=== PATIENT | male | born 1950 | race Caucasian/White ===

== ENCOUNTER 2019-05-27 22:00 | Inpatient (IN) | payer MEDICARE ==
[2019-05-28] VITALS (30 sets, daily range): BP systolic 96–136; BP diastolic 54–91; O2SAT 93–96
[2019-05-28] MEDS: NS 1,000 ML IV SCH ×2 (02:38→15:16)
--- NOTE | 2019-05-28 02:48 | HPEPDOC ---
General Date of Admission 05/28/19 Date of Service: May 28, 2019 Chief Complaint The patient is a 68-year-old male admitted with a reason for visit of Hemoptysis. Source: Patient Exam Limitations: No limitations Timing/Duration: 24 hours Associated Symptoms: Cough, Other (hemoptysis) History of Present Illness Patient is 68 years old male with past medical history of squamous cell lung carcinoma stage 1B/3a transferred from [facility] due to massive hemoptysis. Patient was diagnosed with squamous cell carcinoma of left lung 2 years ago and since that time he had multiple cycles of chemotherapy and radiation. Subsequently he developed radiation pneumonitis. Patient didn't want any further therapy due to poor quality of life. PET/CT of January 2019 didn't show significant progression of diseases. Patient has been recently treated for LLL pneumonia with broad-spectrum antibiotics on 05/11/192018, subsequently he developed C. difficile colitis treated with course of vancomycin. After pneumonia was treated patient noticed intermittent mild hemoptysis. Today, patient started coughing more frequently and developed massive hemoptysis with phlegm with visible small tissue particles. In the [facility] CBC showed hemoglobin of 10.3, patient was normotensive, mildly tachycardic. CTA chest was done and showed no pulmonary emboli, previously noted left parahilar diseases is improved, previously noted parenchymal diseases in the left lower lobe has almost completely resolved. Home Medications Scheduled Aspirin (Aspirin EC) 81 Mg Tablet.dr, 81 MG PO DAILY, (Reported) Cholecalciferol (Vitamin D3) (Vitamin D3) 1,000 Unit Tablet, 1,000 UNIT PO DAILY, (Reported) Clopidogrel Bisulfate (Clopidogrel) 75 Mg Tablet, 75 MG PO DAILY, (Reported) Levothyroxine Sodium (Synthroid) 50 Mcg Tablet, 50 MCG PO DAILY, (Reported) Pantoprazole Sodium (Pantoprazole Sodium) 40 Mg Tablet.dr, 40 MG PO DAILY, (Reported) Allergies Coded Allergies: amoxicillin (Verified Allergy, Unknown, UPSET STOMACH, 05/28/19) clavulanic acid (Verified Allergy, Unknown, UPSET STOMACH, 05/28/19) albuterol (Verified Adverse Reaction, Unknown, SHAKY, 05/28/19) Past Medical History Medical History Coronary artery diseases, squamous cell lung carcinoma, status post stent placement in 2018. Family History Father had melanoma and liver cancer Mother from stroke and Alzheimer Social History * Smoker: former Smoker Alcohol: Denies Drugs: denies A-FIB/CHADSVASC A-FIB History Current/History of A-Fib/PAF?: No Current PO Anticoag Therapy: No Review of Systems Constitutional: Reports: Malaise; Denies: Chills, Fever Eyes: Denies: Pain, Vision change ENT: Denies: Head Aches, Ear Pain Skin: Denies: Rash, Lesions Pulmonary: Reports: Dyspnea, Cough, Other Symptoms (hemoptysis) Cardiovascular: Denies: Chest Pain, Palpitations Gastrointestinal: Denies: Nausea, Vomiting Genitourinary: Denies: Dysuria, Frequency Hematologic: Denies: Bruising, Bleeding Excessively Endocrine: Denies: Polydipsia, Polyphagia Musculoskeletal: Denies: Neck Pain, Back Pain Neurological: Denies: Weakness, Numbness Psych: Reports: Mood Normal Physical Examination General Exam: Positive: Alert, Cooperative Eye Exam: Positive: PERRLA ENT Exam: Positive: Atraumatic, Mucous membr. moist/pink Neck Exam: Positive: Supple; Negative: JVD Chest Exam: Positive: Rhonchi (coarse lung sounds bilaterally) Heart Exam: Positive: Tachycardic Telemetry: Positive: Sinus Abdomen Exam: Positive: Normal bowel sounds Extremity Exam: Positive: Clubbing; Negative: Cyanosis Skin Exam: Positive: Nl turgor and temperature Neuro Exam: Positive: Normal Gait, Strength at 5/5 X4 ext, Cranial Nerves 3-12 NL Psych Exam: Positive: Mental status NL Vital Signs HR75 Assessment/Plan Patient is 68 years old male with past medical history of squamous cell lung carcinoma stage 1B/3a transferred from [facility] due to massive hemoptysis. Patient was diagnosed with squamous cell carcinoma of left lung 2 years ago and since that time he had multiple cycles of chemotherapy and radiation. Subsequently he developed radiation pneumonitis. Patient didn't want any further therapy due to poor quality of life. 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 difficile colitis. (2) Primary lung squamous cell carcinoma Status: Chronic Problem Text: Follow-up with oncologist in the outpatient settings (3) Coronary artery disease Status: Chronic Problem Text: Patient has 2 stents placed in June 2018, he has been on the dual antiplatelet therapy I will stop Plavix for now, continue aspirin Continue cardioprotective medications Plan / VTE VTE Prophylaxis Ordered?: No VTE Exclusion Pharmacological: Other (hemoptysis) ASAEL MORALES DO May 28, 2019 02:48
[2019-05-28 02:50] LABS: HEMATOCRIT 33.5 % (42.0-52.0); HEMOGLOBIN 9.9 g/dl (13.5-17.5); MEAN CORPUSCULAR HEMOGLOBIN 26.3 pg (27.0-33.0); MEAN CORPUSCULAR HGB CONC 29.6 g/dl (32.0-36.5); MEAN CORPUSCULAR VOLUME 88.9 fl (80.0-96.0); PLATELET COUNT, AUTOMATED 264 10^3/uL (150-450); RED BLOOD COUNT 3.77 10^6/uL (4.30-6.10); WHITE BLOOD COUNT 7.4 10^3/uL (4.0-10.0)
[2019-05-28 03:16] LABS: BLOOD UREA NITROGEN 19 MG/DL (7-18); CARBON DIOXIDE LEVEL 26 MEQ/L (21-32); CHLORIDE LEVEL 113 MEQ/L (98-107); CREATININE FOR GFR 1.13 MG/DL (0.70-1.30); GLOMERULAR FILTRATION RATE > 60.0 (>49); GLUCOSE, FASTING 154 MG/DL (70-100); POTASSIUM SERUM 4.9 MEQ/L (3.5-5.1); SODIUM LEVEL 144 MEQ/L (136-145)
[2019-05-28] MEDS ORDERED: ASPI-161 PO (03:30)
[2019-05-28] MEDS ORDERED: CLOP75TA2 PO (03:30)
[2019-05-28] MEDS ORDERED: SYNT50TA PO (03:30)
[2019-05-28] MEDS ORDERED: PANT40TA3 PO (03:30)
[2019-05-28] MEDS ORDERED: VITATAB26 PO (03:30)
[2019-05-28] MEDS: TIOTROPIUM INHALER/CAPSULE (SPIRIVA) INH SCH (07:22)
[2019-05-28] MEDS: LEVALBUTEROL 1.25 MG/0.5 ML CONCENTRATE NEB INH SCH ×3 (08:00→19:33)
[2019-05-28] MEDS ORDERED: LEVOTHYROXINE 50MCG TABLET (0.05MG) PO SCH (09:00)
[2019-05-28] MEDS ORDERED: PANTOPRAZOLE 40MG TAB (PROTONIX) PO SCH (09:00)
[2019-05-28] MEDS ORDERED: ASPIRIN 81 MG ENTERIC TAB PO SCH (09:00)
[2019-05-28] MEDS ORDERED: ACETAMINOPH W/CODEINE #3 TAB UD PO PRN (09:15)
[2019-05-28] MEDS: VITAMIN D 1,000 INTERNATIONAL UNITS TABLET PO SCH (09:30)
[2019-05-28 10:02] LABS: HEMATOCRIT 34.5 % (42.0-52.0); HEMOGLOBIN 10.5 g/dl (13.5-17.5)
[2019-05-28] MEDS ORDERED: ONDANSETRON 4MG/2ML VIAL (J2405) IV PRN (10:45)
--- NOTE | 2019-05-28 10:47 | IPNPDOC ---
Subjective Date Seen The patient was seen on 05/28/19. Subjective Chief Complaint/HPI Says last evening about 7:30 pm started coughing up massive jayden of blood. said about 2 gallons, half filled his sink and says it clogged the sink. There was clots and tissues mixed with it. No fever or chills, no diarrhea. says he has been feeling sob for he last 2 days and felt that his pneumonia was either coming back or did not go away completely. No diarrhea. he finished the vancomycin and antibiotics and has marty off the medicines for 1 week. Objective Physical Examination General Exam: Positive: Alert, Cooperative, No Acute Distress Eye Exam: Positive: Conjunctiva & lids normal, EOMI; Negative: Sclera icteric ENT Exam: Positive: Atraumatic, Mucous membr. moist/pink Neck Exam: Positive: Supple; Negative: JVD Chest Exam: Positive: Rhonchi (coarse lung sounds bilaterally), Diminished Heart Exam: Positive: Rate Normal, Regular Rhythm, Normal S1, Normal S2; Negative: Murmurs, Rubs Telemetry: Positive: Sinus Abdomen Exam: Positive: Normal bowel sounds, Soft; Negative: Tenderness, Hepatospenomegaly Extremity Exam: Positive: Clubbing; Negative: Cyanosis, Edema, Tenderness, Swelling Skin Exam: Positive: Nl turgor and temperature Neuro Exam: Positive: Normal Gait, Strength at 5/5 X4 ext, Cranial Nerves 3-12 NL Psych Exam: Positive: Mental status NL, Anxiety Assessment /Plan Assessment Patient is 68 years old male with past medical history of squamous cell lung carcinoma stage 1B/3a with PET in january showing progress, c.diff 2 weeks ago, COPD, hypothyroid, CAD s/p stents transferred from [facility] due to massive hemoptysis. Patient was diagnosed with squamous cell carcinoma of left lung 2 years ago and since that time he had multiple cycles of chemotherapy and radiation. Subsequently he developed radiation pneumonitis. Patient didn't want any further therapy for the cancer due to poor quality of life. Hemoptysis most likely bleeding from the endobronchial cancer and scar tissues int eh left upper lobe. CTA did not reveal hemorrhage from the lung parenchyma Patient is afebrile, no elevated wbc. will not give antibiotics will give cough suppressants , steroids. Of note patient recently had history of C. difficile colitis. COPD with mild exacerbation will give nebs and steroids does not want albuterol Primary lung squamous cell carcinoma Status: Chronic Problem Text: Follow-up with oncologist in the outpatient settings Coronary artery disease Problem Text: Patient has 2 stents placed in June 2018, he has been on the dual antiplatelet therapy will hold also ASA today. plavix stopped yesterday. Plan/VTE VTE Prophylaxis Ordered?: Yes VS, I&O, 24H, Fishbone Vital Signs/I&O Vital Signs Date Time Temp Pulse Resp B/P (MAP) Pulse Ox O2 Delivery O2 Flow Rate FiO2 05/28/19 10:00 94 Room Air 05/28/19 09:00 2.0 05/28/19 08:00 97.6 95 20 136/91 (106) I&O- Last 24 Hours up to 6 AM 05/28/19 06:00 Intake Total 300 ml Output Total 150 ml Balance 150 ml Laboratory Data 24H LABS Laboratory Tests 2 05/28/19 02:43: Nucleated Red Blood Cells % (auto) 0.0, Anion Gap 5L, Glomerular Filtration Rate > 60.0, Calcium Level 8.0L CBC/BMP Laboratory Tests 05/28/19 02:43 05/28/19 09:52 REBEKAH MEIER MD May 28, 2019 10:47
[2019-05-28] MEDS: DEXTROMETHORPHAN 60MG/10ML SUSP 90ML BTL(DELSYM) PO SCH ×2 (11:51→20:55)
[2019-05-28] MEDS: methylPREDNISolone INJ 40 MG/1 ML VIAL (J2920) IV SCH ×3 (11:51→23:19)
[2019-05-28 12:23] LABS: HEMATOCRIT 33.5 % (42.0-52.0); HEMOGLOBIN 9.9 g/dl (13.5-17.5)
--- NOTE | 2019-05-28 12:42 | CR ---
DATE OF CONSULTATION: 05/28/2019 CHIEF COMPLAINT: Hemoptysis. HISTORY OF PRESENT ILLNESS: The patient is a 68-year-old male with a past medical history of chronic obstructive pulmonary disease (COPD) status post stents, squamous cell lung cancer diagnosed in the left lung, who is transferred from [facility] for reportedly massive hemoptysis. The patient was diagnosed with squamous cell carcinoma of the left lung 2 years ago. He was treated with chemotherapy and radiation with subsequent development of radiation pneumonitis. He was then on immunotherapy, which he did not tolerate, and has since been off all treatment since September of this year. The patient was recently admitted 05/11/2019 with increased cough and some episodes of hemoptysis, which he reports as teaspoon size to tablespoon size in his mucus. He was treated with the antibiotics for a left lower lobe pneumonia with MSSA and subsequently developed Clostridium (C) difficile colitis toward the end of his antibiotic course, which was treated with vancomycin. The patient was discharged home to complete the course of oral antibiotics. He finished his antibiotics last week and he felt he was improving in terms of his cough. He did start to notice some episodes of mild intermittent hemoptysis in his sputum in the past two days, but overnight the patient started having a coughing fit and had been coughing up more amounts of blood with some small tissue particles and mucus mixed in. The patient reports he was filling up almost a sink of blood overnight. He presented to [facility] then where he had a CT angiogram performed and was then transferred here for further management. The patient was previously following with a compositor apprentice near his home. However, he has not seen him for some time. He was previously trialed on Anoro, which he did not notice improvement in his breathing and was then change to Stiolto. The patient has not been using the Stiolto as he found that it would make him cough and he did not feel it was improving his breathing. He was also previously prescribed nebulizer treatments with albuterol, which he did not like due to tremors, and so he has not been using any inhaler therapy for some time since the summer he reports. The patient also has home nasal cannula oxygen supplementation, which he only uses with more physical exertion such if he is outdoors mowing or doing other activities. He does not use his oxygen at night. In the past few days, he has felt some subjective chills. No fevers. Has not had any chest pain. He does have some slight increased shortness of breath as well as a cough. The patient denies any abdominal pain. No increased lower extremity edema. He otherwise reports compliance with his home medication of aspirin and Plavix which he has been on since he had two stents placed in June of 2018. Of note as per the oncologist's progress note, which was written when he was initially admitted to the hospital, he had a more recent PET CT done in April of 2019, which did show some minimal increase in size of left hilar soft tissue density. It was noted to be less hypermetabolic however on PET. PAST MEDICAL HISTORY: CAD. Squamous cell lung carcinoma on the left lung. History of stent placement in 2018. COPD. Hypothyroidism. FAMILY HISTORY: Father with history of melanoma and liver cancer. Mother with history of Alzheimer and CVA. SOCIAL HISTORY: The patient is a former smoker. HOME MEDICATIONS: - aspirin - Plavix - vitamin D - Synthroid - pantoprazole ALLERGIES: To AMOXICILLIN/CLAVULANIC ACID, and ALBUTEROL. PHYSICAL EXAMINATION: Temperature 97.6, pulse 95, respirations 20, blood pressure 136/91, oxygen saturation 95% on room air. General: The patient is sitting in bed, in no acute distress, is able to speak in complete sentences and is not using any accessory muscles for respiration. HEENT: Normocephalic, atraumatic. Pupils are equal and reactive to light bilaterally. Mucous membranes are moist. Neck is supple. Trachea is midline. No palpable cervical adenopathy. Cardiovascular: Regular rate and rhythm. Normal S1, S2. Unable to appreciate any murmurs. Pulmonary: Faint wheezing on the right side. On the left there is increased wheezes and rhonchi noted most particularly in the middle section of the chest posteriorly on the left. Abdomen is obese. It is soft, nontender, nondistended. No palpable mass. Extremities: There is very trace lower extremity edema bilaterally. LABORATORY DATA: WBC 7.4, hemoglobin 9.9 repeat 10.5 this morning. Platelets are 264. Chemistry: Sodium is 144, potassium 4.9, chloride is 113, bicarbonate is 26, BUN 19, creatinine is 1.13, glucose is 154. IMAGES: CT chest at outside hospital at [place] 05/27/2019 - emphysematous changes noted mostly in the upper lobes. There is a saber sheath trachea noted. There is some volume loss on the left side with perihilar soft tissue fullness on the left. There appears to be an endobronchial lesion in the left main bronchus. There is some evidence of radiation pneumonitis in the left upper lobe and some fibrosis extending to the left perihilar region. There are some alveolar opacities in the left lower lobe, which as per the CT report compared to the previous CT imaging, which I do not have access to, is improved. There are some very mild faint reticular nodular opacities in the right lower lobe. There is severe coronary artery calcifications noted. IMPRESSION: Mr. Rico is a 68-year-old male with a history of hypothyroidism, CAD, status post stents, chronic obstructive pulmonary disease, squamous cell carcinoma in the left lung who is here for hemoptysis. The patient was recently admitted at an outside hospital with left lower lobe pneumonia secondary to MSSA in his sputum. He did have some intermittent hemoptysis during his admission, which had improved after being treated with broad-spectrum IV antibiotics. The patient's hospital course was also complicated by development of C diff colitis, which he was treated with vancomycin by mouth as well. In the past few days, the patient has noted some recurrent hemoptysis and overnight developed an episode of coughing with more severe hemoptysis. He has not had any chest pain. Has some slight increased shortness of breath. No fevers but did have some subjective chills. The patient had a repeat CT angiogram done, which did not show any evidence of pulmonary embolism (PE). The previously noted left lower lobe opacity on his prior CT was reportedly improved. He does have the left soft tissue perihilar fullness on the left side, which is likely his cancer. He also has some evidence of radiation pneumonitis changes in the left lung and some volume loss. There was noted what appears to be endobronchial lesion on my review in the left main bronchus, which may be potentially a tumor. The patient was also on Plavix and aspirin for anticoagulation. Since his transfer to [facility], he has not had the massive hemoptysis but is still having increased cough with some sputum with teaspoons of blood mixed in. On exam, he does have wheezing diffusely and some increased rhonchi and wheezes more on the left side. The patient does have a history of COPD and has not been on any inhalers. He likely does have a component of acute COPD exacerbation. I suspect his hemoptysis is from his lung cancer on the left side with possible endobronchial disease. Squamous cell in particular can be friable and easy to bleed. He is also on aspirin and Plavix which is also contributing to his hemoptysis. - Would hold the patient's Plavix but can continue with the aspirin given his stents which were placed almost a year ago at this point. - Continue with cough suppressant medication and continue to monitor his amount of hemoptysis. - Will start him on steroids with Solu-Medrol 40 mg every 6 and start him on Xopenex nebulizers. Can also start him on Spiriva for his history of COPD as well. - The patient currently appears to be saturating well on room air and is not in any respiratory distress. He does have a nasal cannula oxygen, which he uses as needed. Can start him on nasal cannula oxygen with exertion if needed to maintain oxygen saturation above 90% - If patient were to have worsening episodes of hemoptysis then he would likely need to be intubated for bronchoscopy to help localize the site of bleeding. Suspect his hemoptysis can be localized to his left lung with the potential of a left mainstem endobronchial lesion. If he were to have continued hemoptysis, he may also benefit from angiography for treatment and embolization as well. At this time however, will continue to monitor him. - The patient is DO NOT RESUSCITATE/DO NOT INTUBATE and he has refused any further chemotherapy or immunotherapy treatment since September of this year as he felt with treatment he was having worsening quality of life. However, if he were to have massive hemoptysis again would need to re-address his GOC. - Will repeat a chest x-ray in the morning. He is at risk for possible recurrent postobstructive pneumonias and if there is any evidence of pneumonia with increasing leukocytosis and fevers and worsening findings on imaging, then would start him on antibiotics at that time. - Would make sure he has an active type and screen. Deep venous thrombosis (DVT) prophylaxis. Sequential compressive device (SCD). CODE STATUS: DO NOT RESUSCITATE/DO NOT INTUBATE. MTDD
[2019-05-28] MEDS ORDERED: SUCCINYLCHOLINE INJ 200 MG/10 ML VIAL (J0330) IV ONE (18:45)
[2019-05-28] MEDS ORDERED: ETOMIDATE INJ 20MG/10ML VIAL IV ONE (18:45)
[2019-05-28] MEDS ORDERED: PROPOFOL 1,000 MG/100 ML VIAL As Ordered ONE (19:00)
[2019-05-28] MEDS ORDERED: THROMBIN SOLN 20,000 UNITS KIT As Ordered ONE (19:16)
[2019-05-28] MEDS ORDERED: THROMBIN SOLN 5,000 UNITS VIAL As Ordered ONE (19:16)
[2019-05-28] MEDS ORDERED: EPINEPHrine 1MG/10ML SYRINGE 1.5IN As Ordered ONE (19:17)
[2019-05-28] MEDS ORDERED: fentaNYL 100 MCG/2 ML INJECTION (J3010) As Ordered ONE (19:19)
[2019-05-28] MEDS ORDERED: MIDAZOLAM INJ 2 MG/2 ML VIAL (J2250) IV STA (19:37)
[2019-05-28] MEDS ORDERED: MIDAZOLAM INJ 2 MG/2 ML VIAL (J2250) As Ordered ONE ×2 (19:38→20:23)
[2019-05-28] MEDS ORDERED: LIDOCAINE 1% MDV 20ML VIAL As Ordered ONE (19:58)
[2019-05-28] MEDS ORDERED: CETACAINE SPRAY 5GM As Ordered ONE (20:00)
[2019-05-28] MEDS ORDERED: PROPOFOL 200 MG/20 ML VIAL As Ordered ONE (20:23)
[2019-05-28] MEDS ORDERED: CALCIUM CHLORIDE 10% 1 GM/10 ML SYR As Ordered ONE (20:23)
[2019-05-28] MEDS ORDERED: PHENYLephrine HCL 500 MCG/5 ML (100MCG/ML) SYRINGE (J2370) As Ordered ONE (20:23)
[2019-05-28] MEDS ORDERED: LIDOCAINE 2% INJ 100 MG/5 ML SDV (FOR ANES.) As Ordered ONE (20:23)
[2019-05-28] MEDS ORDERED: ROCURONIUM BROMIDE 50 MG/5 ML VIAL As Ordered ONE (20:23)
[2019-05-28] MEDS ORDERED: fentaNYL 250 MCG/5 ML INJECTION (J3010) As Ordered ONE (20:23)
--- NOTE | 2019-05-28 20:28 | ROOR ---
Patient Name: Constantino Rico Procedure Date: 05/28/2019 7:48 PM Date of : 1950 Admit Type: Inpatient Age: 68 Room: Main OR Note Status: Finalized Attending MD: Arely Patel MD Procedure: Bronchoscopy Indications: Hemoptysis with abnormal CXR Providers: Arely Patel MD (Doctor) Referring MD: 1. No Referring Physician 1. No Referring Physician, Admin. (Referring MD) Requesting Physician: Medicines: General Anesthesia Complications: No immediate complications. Estimated blood loss: Minimal Procedure: Pre-Anesthesia Assessment: - Prior to the procedure, a History and Physical was performed, and patient medications and allergies were reviewed. The patient's tolerance of previous anesthesia was also reviewed. The risks and benefits of the procedure and the sedation options and risks were discussed with the patient. All questions were answered, and informed consent was obtained. Prior Anticoagulants: The patient has taken aspirin, last dose was 1 day prior to procedure. ASA Grade Assessment: III - A patient with severe systemic disease. After reviewing the risks and benefits, the patient was deemed in satisfactory condition to undergo the procedure. The Bronchoscope was introduced through the mouth, via the endotracheal tube (the patient was intubated for the procedure) and advanced to the tracheobronchial tree of both lungs. The procedure was accomplished without difficulty. The patient tolerated the procedure well. Findings: In the right lung there was bloody mucoid secretions noted. No endobronchial lesions, no active bleeding in right bronchial tree. Left Lung Abnormalities: Nodular mucosa was found in the left mainstem bronchus. An area of polypoid, friable endobronchial lesion was found in the left mainstem bronchus. There was almost near complete obstruction of the left main stem bronchus with visible oozing blood noted. Topical Epinephrine (1:10,000), 1 mg/10 mL and Thrombin 5000 units was administered. The bleeding persisted for awhile, but eventually stopped. Impression: - Hemoptysis with abnormal CXR - Nodular mucosa was visualized in the left mainstem bronchus. - Polypoid, Friable endobronchial lesion was found in the left mainstem bronchus. - Topical Epinephrine (1:10,000), 1 mg/10 mL and Thrombin 5000 units administered. The bleeding persisted for awhile, but eventually stopped. - No specimens collected. Recommendation: - Repeat flexible bronchoscopy 1 day. Attending Participation: I personally performed the entire procedure. Arely Patel MD 05/28/2019 8:27:28 PM Number of Addenda: 0 Note Initiated On: 05/28/2019 7:48 PM
[2019-05-28] MEDS: PROPOFOL 1,000 MG in IV 1 EA IV SCH (20:43)
[2019-05-28] MEDS: CHLORHEXIDINE GLUCONATE 0.12 % 15ML UDC (PERIDEX ORAL RINSE) MT SCH (20:43)
[2019-05-28] MEDS ORDERED: fentaNYL 100 MCG/2 ML INJECTION (J3010) IV PRN (20:45)
[2019-05-28] MEDS: MIDAZOLAM INJ 2 MG/2 ML VIAL (J2250) IV PRN (21:06)
[2019-05-28 21:25] LABS: ABG BASE EXCESS -4.1 (-2.0-2.0); ABG HCO3 20.8 MEQ/L (22.0-26.0); ABG O2 SATURATION 98.9 % (95.0-99.0); ABG PARTIAL PRESSURE CO2 37.2 mmHg (35.0-45.0); ABG STANDARD HCO3 21.1 MEQ/L (22.0-26.0); ABG pH (ARTERIAL) 7.366 UNITS (7.350-7.450)
--- NOTE | 2019-05-28 21:59 | IPN ---
DATE: 05/28/2019 The patient was seen later this afternoon after developing an episode of massive hemoptysis. The patient had an episode of coughing where he coughed up bright red blood, approximately 200 mL of bright red blood with some clots into a bag. He was mildly tachypneic and was on nasal cannula oxygen at that point. He denied any significant chest pains or worsening shortness of breath, but he did feel slightly more discomfort than previous. Patient's vital signs otherwise were relatively stable besides some mild tachycardia. Discussed with the patient and his then with his recurrent massive hemoptysis that he would likely need bronchoscopy to help localize the bleeding source and would have to be intubated for the procedure. The patient previously was do not resuscitate/do not intubate (DNR/DNI); however after some further discussion about his goals of care, he was agreeable to RESCIND his DNR/DNI for his acute active hemoptysis episodes in order to have treatment. The patient was, therefore, consented for bronchoscopy to help localize the bleeding. Patient was transferred to ICU where he was intubated using Glidescope with a size 8 ETT. He was then sent to OR for bronchoscopy with anesthesia. On the bronchoscopy, he was noted to have an endobronchial lesion in the left mainstem bronchus, which was oozing blood. He had epinephrine topically and thrombin applied with hemostasis achieved. He did also have some mucus and blood secretions in the right lung which were cleared out with suctioning. The patient will be placed on left side down and will have a repeat bronchoscopy tomorrow to assess if he has any evidence of rebleeding. He will also be kept sedated overnight to help diminish any coughing on the ventilator. Will also transfuse patient one unit of platelets given his dysfunctional platelets from the aspirin and Plavix to help with his bleeding and hemoptysis. Discussed with the patient's and family at the bedside that given the endobronchial disease, he may benefit from interventional pulmonary procedures such as cryotherapy or laser therapy and possible stent placement. The lesion appears to be almost completely occluding his left main bronchus, and there is some concern that he may develop complete occlusion and collapse on that left lung at some point. The lesion in the left main bronchus was also extremely friable, and although it appears he has stopped actively bleeding at this time, there is concern that he may potentially rebleed again. Therefore, we discussed potential transfer to a facility that has interventional pulmonary. We also discussed that he may need interventional radiology for angiography and embolization potentially for control of bleeding as well. There is no interventional radiology personnel psychologist this weekend and so he may potentially need to be transferred to a facility that has both services available. CODE STATUS: Code status is now FULL CODE. MTDD
[2019-05-28 23:35] LABS: HEMATOCRIT 26.5 % (42.0-52.0)
[2019-05-28 23:44] LABS: HEMOGLOBIN 7.9 g/dl (13.5-17.5)
[2019-05-29] VITALS (19 sets, daily range): BP systolic 93–114; BP diastolic 52–69
[2019-05-29] MEDS: LEVALBUTEROL 1.25 MG/0.5 ML CONCENTRATE NEB INH SCH ×2 (01:34→07:33)
[2019-05-29] MEDS: MIDAZOLAM INJ 2 MG/2 ML VIAL (J2250) IV PRN ×3 (02:36→13:31)
[2019-05-29] MEDS: NS 1,000 ML IV SCH (03:26)
[2019-05-29] MEDS: PROPOFOL 1,000 MG in IV 1 EA IV SCH ×3 (03:27→13:15)
[2019-05-29 04:23] LABS: HEMATOCRIT 25.5 % (42.0-52.0); HEMOGLOBIN 7.7 g/dl (13.5-17.5); MEAN CORPUSCULAR HEMOGLOBIN 26.2 pg (27.0-33.0); MEAN CORPUSCULAR HGB CONC 30.2 g/dl (32.0-36.5); MEAN CORPUSCULAR VOLUME 86.7 fl (80.0-96.0); PLATELET COUNT, AUTOMATED 237 10^3/uL (150-450); RED BLOOD COUNT 2.94 10^6/uL (4.30-6.10); WHITE BLOOD COUNT 6.5 10^3/uL (4.0-10.0)
[2019-05-29 05:03] LABS: BLOOD UREA NITROGEN 24 MG/DL (7-18); CALCIUM LEVEL 8.5 MG/DL (8.8-10.2); CARBON DIOXIDE LEVEL 26 MEQ/L (21-32); CHLORIDE LEVEL 113 MEQ/L (98-107); CREATININE FOR GFR 1.05 MG/DL (0.70-1.30); GLOMERULAR FILTRATION RATE > 60.0 (>49); GLUCOSE, FASTING 155 MG/DL (70-100); MAGNESIUM LEVEL 2.1 MG/DL (1.8-2.4); POTASSIUM SERUM 4.3 MEQ/L (3.5-5.1); SODIUM LEVEL 145 MEQ/L (136-145)
[2019-05-29 05:48] LABS: ABG BASE EXCESS -1.5 (-2.0-2.0); ABG HCO3 22.6 MEQ/L (22.0-26.0); ABG O2 SATURATION 99.2 % (95.0-99.0); ABG PARTIAL PRESSURE O2 159.4 mmHg (75.0-100.0); ABG STANDARD HCO3 23.2 MEQ/L (22.0-26.0); ABG TOTAL CO2 23.6 MEQ/L (23.0-31.0); ABG pH (ARTERIAL) 7.427 UNITS (7.350-7.450)
[2019-05-29] MEDS: methylPREDNISolone INJ 40 MG/1 ML VIAL (J2920) IV SCH ×2 (05:59→11:31)
[2019-05-29] MEDS: TIOTROPIUM INHALER/CAPSULE (SPIRIVA) INH SCH (07:33)
--- NOTE | 2019-05-29 07:49 | REP ---
HISTORY: Status post intubation. COMPARISON: There are no priors for comparison. The technique utilized in obtaining the radiograph has magnified the cardiac silhouette and accentuated the interstitial markings. There is a nasogastric tube seen coursing the esophagus, the tip is in the stomach fundal region. There is an endotracheal tube seen, the tip of which is at the level of the aortic knob in satisfactory position. There is a Mediport device seen, the tip of which is in the superior vena cava. The heart is mildly enlarged and magnified by technique. The interstitial markings are diffusely increased. More patchy appearing scattered opacities are again noted. The osseous structures are within normal limits. IMPRESSION: 1. Tubes and lines as described above. 2. Evidence of interstitial edema with evidence to suggest early scattered airspace edema as well. This needs to be correlated clinically. Infection versus fluid overload, possibly secondary to cardiogenic cause. Electronically Signed by Santosh Ordonez DO 05/29/2019 09:22 A
[2019-05-29] MEDS ORDERED: ASPIRIN 81 MG ENTERIC TAB PO SCH (09:00)
[2019-05-29] MEDS ORDERED: LEVOTHYROXINE 100 MCG (0.1MG) VIAL IV SCH (09:00)
[2019-05-29] MEDS ORDERED: FLUBLOK(EGG FREE)(QUAD)INFLUENZA VACC 0.5ML SYRINGE (90682)18YRS&OLDER IM ONE (09:00)
[2019-05-29] MEDS ORDERED: PNEUMOCOCCAL VACCINE 0.5ML SYRINGE(90732) PNEUMOVAX 23 IM ONE (09:00)
[2019-05-29] MEDS ORDERED: PANTOPRAZOLE 40MG INJ (PROTONIX) (C9113) IV SCH (09:00)
--- NOTE | 2019-05-29 09:01 | REP ---
PORTABLE CHEST: The tubes and lines are unchanged. The technique utilized in obtaining the radiograph has magnified the cardiac silhouette and accentuated the interstitial markings. There is a new opacity in the left lower lobe silhouetting out the diaphragmatic surface of the left lung and the left heart border. There is no significant change in the appearance of the right lung. There is no change in the osseous structures. IMPRESSION: New left lower lobe opacity, atelectasis/pneumonia/effusion/a combination thereof. Electronically Signed by Santosh Ordonez DO 05/29/2019 09:24 A
[2019-05-29] MEDS: CHLORHEXIDINE GLUCONATE 0.12 % 15ML UDC (PERIDEX ORAL RINSE) MT SCH (09:09)
[2019-05-29] MEDS ORDERED: FUROSEMIDE 20 MG/2 ML VIAL (J1940) IV ONE (11:00)
[2019-05-29] MEDS: VITAMIN D 1,000 INTERNATIONAL UNITS TABLET PO SCH (11:30)
[2019-05-29] MEDS ORDERED: ROCURONIUM BROMIDE 50 MG/5 ML VIAL As Ordered ONE (11:55)
[2019-05-29] MEDS ORDERED: LIDOCAINE 1% MDV 20ML VIAL As Ordered ONE (11:58)
[2019-05-29] MEDS ORDERED: ROCURONIUM BROMIDE 50 MG/5 ML VIAL IV SCH (12:00)
--- NOTE | 2019-05-29 13:33 | REP ---
PORTABLE CHEST: HISTORY: Followup. Status post intubation. COMPARISON: Earlier today. The endotracheal tube tip remains in satisfactory position at the level of the aortic knob. The nasogastric tube is unchanged. The central venous catheter is unchanged. The left lower lobe opacity is unchanged. There are no new abnormal right lung opacities. There is no change in the osseous structures. IMPRESSION: No significant change. Electronically Signed by Santosh Ordonez DO 05/29/2019 02:47 P
--- NOTE | 2019-05-29 13:49 | DS.PDOC ---
Discharge Summary General Date of Admission May 28, 2019 at 01:40 Date of Discharge 05/29/19 Discharge Summary PROCEDURES PERFORMED DURING STAY: Endotracheal intubation. Flexible bronchoscopy ADMITTING DIAGNOSES: 1. Massive hemoptysis DISCHARGE DIAGNOSES: 1. Massive hemoptysis 2. 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 HISTORY OF PRESENT ILLNESS: : The patient is a 68-year-old male with a past medical history of chronic obstructive pulmonary disease (COPD) status post stents, squamous cell lung cancer diagnosed in the left lung, who is transferred from [facility] for massive hemoptysis. The patient was diagnosed with squamous cell carcinoma of the left lung 2 years ago. He was treated with chemotherapy and radiation with subsequent development of radiation pneumonitis. He was then on immunotherapy, which he did not tolerate, and has since been off all treatment since September of this year. The patient was recently admitted 05/11/2019 with increased cough and some episodes of hemoptysis, which he reports as teaspoon size to tablespoon size in his mucus. He was treated with the antibiotics for a left lower lobe pneumonia with MSSA and subsequently developed Clostridium (C) difficile colitis toward the end of his antibiotic course, which was treated with vancomycin. The patient was discharged home to complete the course of oral antibiotics. He finished his antibiotics last week and he felt he was improving in terms of his cough. He did start to notice some episodes of mild intermittent hemoptysis in his sputum in the past two days, but overnight the patient started having a coughing fit and had been coughing up more amounts of blood with some small tissue particles and mucus mixed in. The patient reports he was filling up almost a sink of blood overnight. He presented to [facility] then where he had a CT angiogram performed and was then transferred here for further management. The patient was previously following with a heavy lift rigger near his home. However, he has not seen him for some time. He was previously trialed on Anoro, which he did not notice improvement in his breathing and was then change to Stiolto. The patient has not been using the Stiolto as he found that it would make him cough and he did not feel it was improving his breathing. He was also previously prescribed nebulizer treatments with albuterol, which he did not like due to tremors, and so he has not been using any inhaler therapy for some time since the summer he reports. The patient also has home nasal cannula oxygen supplementation, which he only uses with more physical exertion such if he is outdoors mowing or doing other activities. He does not use his oxygen at night. In the past few days, he has felt some subjective chills. No fevers. Has not had any chest pain. He does have some slight increased shortness of breath as well as a cough. The patient denies any abdominal pain. No increased lower extremity edema. He otherwise reports compliance with his home medication of aspirin and Plavix which he has been on since he had two stents placed in June of 2018. HOSPITAL COURSE: Patient was initially admitted to PCU. He was started on IV solumedrol for possible COPD exacerbation and also on cough suppressant medication. His plavix was held but aspirin was continued initially. The patient was seen later this afternoon after developing an episode of massive hemoptysis. The patient had an episode of coughing where he coughed up bright red blood, approximately 200 mL of bright red blood with some clots into a bag. He was mildly tachypneic and was on nasal cannula oxygen at that point. Discussed with the patient and his then with his recurrent massive hemoptysis that he would likely need bronchoscopy to help localize the bleeding source and would have to be intubated for the procedure. The patient previously was do not resuscitate/do not intubate (DNR/DNI); however after some further discussion about his goals of care, he was agreeable to RESCIND his DNR/DNI for his acute active hemoptysis episodes in order to have treatment. Patient was transferred to ICU where he was intubated using Glidescope with a size 8 ETT. He was then sent to OR for bronchoscopy with anesthesia. On the bronchoscopy, he was noted to have an endobronchial lesion in the left mainstem bronchus, which was oozing blood. He had epinephrine topically and thrombin applied with hemostasis achieved. He did also have some mucus and blood secretions in the right lung which were cleared out with suctioning. The patient was placed left side down. He was transfused one unit of platelets given his dysfunctional platelets from the aspirin and Plavix to help with hemostasis. Patient's hemoglobin trended down overnight to 7.7 this morning. He was given one unit of PRBC. Discussed with the patient's and family at the bedside that given the endobronchial disease, he may benefit from interventional pulmonary procedures such as cryotherapy or laser therapy and possible stent placement. The lesion appears to be partially occluding his left main bronchus, and on his CXR this morning he was noted to have collapse in LLL. The lesion in the left main bronchus was also extremely friable, and although it appears he has stopped actively bleeding at this time, there is concern that he may potentially rebleed again. Therefore, we discussed potential transfer to a facility that has interventional pulmonary. We also discussed that he may need interventional radiology for angiography and embolization potentially for control of bleeding as well. There is no interventional radiology fire prevention forester this weekend and so he would need to be transferred to a facility that has both services available. Patient was therefore referred for transfer to [facility] for interventional bronchoscopic procedures. He was accepted by CT surgery Dr. Hodges at their medical ICU. He had a repeat bronchoscopy performed in the ICU prior to tranfer which showed some bloody mucoid secretions in right lung and the endobronchial lesion partially occluding the left main stem bronchus. There was mild oozing but no active bleeding. Right mainstem endotracheal tube placement using bronchoscope for guidance was attempted however patient's endotracheal tube was not long enough and was sitting barely into the right mainstem without leaving enough ETT for it to be secured properly with ETT srinivasan. Repeat CXR showed that the ETT had slipped out of the right mainstem and was sitting at wendy. Therefore his ETT was adjusted to the usual prior posit ion and he will need to be transported by [facility] to limit the travel time and also for possible advanced airway management if he has recurrent hemoptysis. Will also plan to position him left lung down if he does have hemoptysis. DISCHARGE MEDICATIONS: Please see below. ALLERGIES: Please see below. PHYSICAL EXAMINATION ON DISCHARGE: VITAL SIGNS: Please see below. General: The patient is lying bed, sedated. Responsive to painful stimuli HEENT: Normocephalic, atraumatic. Pupils are equal and reactive to light bilaterally. Mucous membranes are moist. Neck is supple. Trachea is midline. No palpable cervical adenopathy. ETT in place and OGT in place Cardiovascular: Regular rate and rhythm. Normal S1, S2. Unable to appreciate any murmurs. Pulmonary: Diminished breath sounds on left base. Right lung with coarse breath sounds but no wheezing, rales or rhonchi. Abdomen is obese. It is soft, nontender, nondistended. No palpable mass. Extremities: Trace to +1 pitting edema in bilateral lower extremities LABORATORY DATA: Please see below. IMAGING: CT chest at outside hospital at [place] 05/27/2019 - emphysematous changes noted mostly in the upper lobes. There is a saber sheath trachea noted. There is some volume loss on the left side with perihilar soft tissue fullness on the left. There appears to be an endobronchial lesion in the left main bronchus. There is some evidence of radiation pneumonitis in the left upper lobe and some fibrosis extending to the left perihilar region. There are some alveolar opacities in the left lower lobe, which as per the CT report compared to the previous CT imaging, which I do not have access to, is improved. There are some very mild faint reticular nodular opacities in the right lower lobe. There is severe coronary artery calcifications noted. PROGNOSIS: Guarded DIET: NPO DISPOSITION: Transfer to another facility DISCHARGE INSTRUCTIONS: 1. Follow-up with oncologist after hospitalization DISCHARGE CONDITION: Stable TIME SPENT ON DISCHARGE: Greater than 30 minutes. Vital Signs/I&Os Vital Signs Date Time Temp Pulse Resp B/P (MAP) Pulse Ox O2 Delivery O2 Flow Rate FiO2 05/29/19 12:05 97.9 62 16 101/61 100 Ventilator 40 05/28/19 17:30 2.0 I&O- Last 24 Hours up to 6 AM 05/29/19 06:00 Intake Total 3021 ml Output Total 1150 ml Balance 1871 ml Laboratory Data Labs 24H Laboratory Tests 2 05/28/19 20:45: Blood Gas Bicarbonate Standard 21.1L, Arterial Blood pH 7.366, Arterial Blood Partial Pressure CO2 37.2, Arterial Blood Partial Pressure O2 146.0H, Arterial Blood Total CO2 22.0L, Arterial Blood HCO3 20.8L, Arterial Blood Base Excess - 4.1L, Arterial Blood Oxygen Saturation 98.9 05/29/19 04:19: Nucleated Red Blood Cells % (auto) 0.0, Anion Gap 6L, Glomerular Filtration Rate > 60.0, Calcium Level 8.5L, Magnesium Level 2.1 05/29/19 05:36: Blood Gas Bicarbonate Standard 23.2, Arterial Blood pH 7.427, Arterial Blood Partial Pressure CO2 35.0, Arterial Blood Partial Pressure O2 159.4H, Arterial Blood Total CO2 23.6, Arterial Blood HCO3 22.6, Arterial Blood Base Excess -1.5, Arterial Blood Oxygen Saturation 99.2H 05/29/19 10:35: Activated Partial Thromboplast Time 29.9 CBC/BMP Laboratory Tests 05/28/19 23:30 05/29/19 04:19 Discharge Medications Scheduled Aspirin (Aspirin EC) 81 Mg Tablet.dr, 81 MG PO DAILY, (Reported) Cholecalciferol (Vitamin D3) (Vitamin D3) 1,000 Unit Tablet, 1,000 UNIT PO DAILY, (Reported) Clopidogrel Bisulfate (Clopidogrel) 75 Mg Tablet, 75 MG PO DAILY, (Reported) Levothyroxine Sodium (Synthroid) 50 Mcg Tablet, 50 MCG PO DAILY, (Reported) Pantoprazole Sodium (Pantoprazole Sodium) 40 Mg Tablet.dr, 40 MG PO DAILY, (Reported) Allergies Coded Allergies: amoxicillin (Verified Allergy, Unknown, UPSET STOMACH, 05/28/19) clavulanic acid (Verified Allergy, Unknown, UPSET STOMACH, 05/28/19) albuterol (Verified Adverse Reaction, Unknown, SHAKY, 05/28/19) WANDA GIL MD May 29, 2019 13:49
--- NOTE | 2019-05-29 14:06 | RO ---
DATE OF PROCEDURE: 05/29/2019 PREPROCEDURE DIAGNOSIS: Hemoptysis. POSTPROCEDURE DIAGNOSIS: Hemoptysis. PROCEDURALIST: Dr. Arely Patel LEAD TRAINER: ANESTHESIA: Propofol and versed CONSENT: Consent was obtained from the patient's right prior to procedure. Risk and benefits were explained at length. PROCEDURE SUMMARY: Time-out was performed prior to the procedure. Cetacaine spray was used to anesthetize the airway and provide lubrication of the bronchoscope through the ET tube. Flexible bronchoscopy was performed. The patient was sedated with propofol and Versed, as well as given rocuronium for paralytic prior to procedure. On bronchoscopy, he was noted to have some bloody mucoid secretions in the right lung, which were suctioned and cleared. There were no endobronchial lesions noted in the right lung. In the left lung he had a endobronchial lesion, which was partially occluding the left main stem bronchus. There was some dried blood secretions and some mild oozing but no evidence of active bleeding noted. The patient did have iced saline and lidocaine applied through bronchoscope to endobronchial lesion. The patient's ET tube was then attempted to be adjusted for right main stem placement using the bronchoscope view for guidance. Given the patient's anatomy, the ET tube was not long enough to fit properly in the right main stem. It was attempted to be placed in the right main stem; however, there was minimal ET tube externally and there was difficulty with proper securing of his ET tube to the tube srinivasan as his ETT was too short. CXR done post bronchoscopy showed that the ET tube had just slid out of the right main stem bronchus and was at the wendy. Attempts for readjustment ended with the ET tube sitting partially in the left main stem with difficulty again with securing ET tube due to the significant advancement needed. The patient's endotracheal tube was then positioned at his previous placement prior to procedure at 24 cm at the lip and repeat chest x-ray confirmed adequate placement at that time. DILLAN
--- NOTE | 2019-05-31 22:40 | RO ---
DATE OF PROCEDURE: 05/28/2019 PREPROCEDURE DIAGNOSIS: POSTPROCEDURE DIAGNOSIS: PROCEDURE: Endotracheal intubation. SURGEON: Dr. Karri Antony, PGY-2 ATTENDING PHYSICIAN: Dr. Arely Patel of Pulmonary Critical Care ladle repairman: ANESTHESIA: INDICATION: Massive hemoptysis with inability to protect airway. SEDATION: Etomidate. NEUROMUSCULAR ÁNGEL: Succinylcholine DESCRIPTION OF PROCEDURE: Patient was placed in the supine position. He received 25 mg of etomidate and 100 mg of succinylcholine. The patient had a size 8 endotracheal tube placed under direct visualization utilizing the GlideScope. The tube was taped at 24 inches at the lip. Respiratory examination post intubation revealed bilateral breath sounds with good chest rise. There was no air sound in the abdomen. End tidal CO2 monitor was used to confirm endotracheal placement. The patient was started on mechanical ventilation. A chest x-ray was obtained in order to assess endotracheal tube placement, which demonstrated endotracheal tube placement above the wendy. COMPLICATIONS: None. Dr. Arely Patel was present and available throughout the entire procedure.
== END 2019-05-29 13:27 | disposition short-term general hospital (02) | DRG 164 ==
LOC: M PCU 05-28 01:40 → M ICU 05-28 18:47
PROVIDERS: ADMIT Internal Medicine; ATTEND Internal Medicine Pulmonary Disease
PROC: 0BH17EZ Insertion of Endotracheal Airway into Trachea, Via Natural or Artificial Opening (ICD-10-PCS; 2019-05-28)
PROC: 5A1935Z Respiratory Ventilation, Less than 24 Consecutive Hours (ICD-10-PCS; 2019-05-28)
PROC: 30233R1 Transfusion of Nonautologous Platelets into Peripheral Vein, Percutaneous Approach (ICD-10-PCS; 2019-05-28)
PROC: 0W3Q8ZZ Control Bleeding in Respiratory Tract, Via Natural or Artificial Opening Endoscopic (ICD-10-PCS; principal; 2019-05-28 18:39)
PROC: 30233N1 Transfusion of Nonautologous Red Blood Cells into Peripheral Vein, Percutaneous Approach (ICD-10-PCS; 2019-05-29)
DX: R04.89 Hemorrhage from other sites in respiratory passages (principal); C34.02 Malignant neoplasm of left main bronchus; J44.1 Chronic obstructive pulmonary disease with (acute) exacerbation; J70.0 Acute pulmonary manifestations due to radiation; I25.10 Atherosclerotic heart disease of native coronary artery without angina pectoris; Z92.21 Personal history of antineoplastic chemotherapy; Z92.3 Personal history of irradiation; Z88.0 Allergy status to penicillin; Z88.8 Allergy status to other drugs, medicaments and biological substances; Z79.82 Long term (current) use of aspirin; Z79.899 Other long term (current) drug therapy; Z95.5 Presence of coronary angioplasty implant and graft; E03.9 Hypothyroidism, unspecified; Z79.02 Long term (current) use of antithrombotics/antiplatelets